=== PATIENT | female | born 1990 | race American Indian/Alaskan Native ===

== ENCOUNTER 2017-05-28 08:57 | Emergency (ER) | payer OTHER ==
[2017-05-28 09:19] VITALS: BP 121/75
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
[2017-05-28] MEDS ORDERED: VALIUM PO ONE (10:29)
[2017-05-28] MEDS ORDERED: TORADOL IM ONE (10:29)
--- NOTE | 2017-05-28 12:29 | Cat Scan Report ---
CT SCAN OF THE CERVICAL SPINE: HISTORY: Midline tenderness, leg numbness. TECHNIQUE: Contiguous 1.25 mm axial images of the cervical spine were obtained. Sagittal and coronal reformatted images. FINDINGS: There is normal alignment of the cervical spine. The body, pedicles and posterior ligaments appear normal. No evidence of fracture or subluxation is seen. The spinal canal appears normal. The prevertebral soft tissues appear normal. IMPRESSION: Unremarkable CT of the cervical spine. No acute process is noted.
--- NOTE | 2017-05-28 12:30 | Cat Scan Report ---
CT SCAN OF THE THORACIC SPINE: HISTORY: Midline tenderness, leg numbness. TECHNIQUE: Contiguous 1.25 mm axial images of the thoracic spine were obtained. Sagittal and coronal reformatted images. FINDINGS: There is normal alignment of the thoracic spine. The body, pedicles and posterior ligaments appear normal. No evidence of fracture or subluxation is seen. The spinal canal appears normal. The prevertebral soft tissues appear normal. IMPRESSION: Unremarkable CT of the thoracic spine. No acute process is noted.
--- NOTE | 2017-05-28 12:54 | Cat Scan Report ---
CT SCAN OF THE LUMBAR SPINE: HISTORY: Midline tenderness, leg numbness. TECHNIQUE: Contiguous 1.25 mm axial images of the cervical spine were obtained. Sagittal and coronal reformatted images. FINDINGS: There is normal alignment of the lumbar spine. The body, pedicles and posterior ligaments appear normal. No evidence of fracture or subluxation is seen. The spinal canal appears normal. The prevertebral soft tissues appear normal. IMPRESSION: Unremarkable CT of the lumbar spine. No acute process is noted.
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
== END 2017-05-28 13:38 | disposition home or self-care (01) ==
LOC: ED 08:57
DX: S16.1XXA Strain of muscle, fascia and tendon at neck level, initial encounter (principal); M54.6 Pain in thoracic spine; M54.5 Low back pain; S80.01XA Contusion of right knee, initial encounter; V49.49XA Driver injured in collision with other motor vehicles in traffic accident, initial encounter; Y93.89 Activity, other specified; Y99.8 Other external cause status; Y92.89 Other specified places as the place of occurrence of the external cause
CPT/HCPCS: 71020; 72126; 72128; 72131; 73562; 96372; 99284; J1885